=== PATIENT | male | born 1970 | race Caucasian/White ===

== ENCOUNTER 2020-06-15 22:29 | Emergency (ER) | payer OTHER, SELFPAY | END 2020-06-15 22:45 | disposition home or self-care (01) | LOC: BURERS 22:29 | DX: S51.011A Laceration without foreign body of right elbow, initial encounter (principal); S40.011A Contusion of right shoulder, initial encounter; S00.01XA Abrasion of scalp, initial encounter; F17.220 Nicotine dependence, chewing tobacco, uncomplicated; V80.010A Animal-rider injured by fall from or being thrown from horse in noncollision accident, initial encounter | CPT/HCPCS: 99283 ==